=== PATIENT | female | born 1995 | race Caucasian/White ===

== ENCOUNTER 2018-08-17 21:07 | Inpatient (IN) | payer OTHER ==
[~2018-08-17] VITALS: Ht 157.5 cm; Wt 81.6 kg
--- NOTE | 2018-08-17 21:19 | NUR ---
SE RECIBE PTE LA CUAL REFIERE PRESENTAR CONGESTION NASAL, EPISODIOS DE FIEBRE Y MALESTAR GENERAL.
--- NOTE | 2018-08-17 23:39 | NUR ---
SE ORIENTA A PACIENTE SOBRE ORDENES MEDICAS. SE ADMINISTRAN MEDICAMENTOS, CANALIZA PACIENTE Y COLECTAN MUESTRAS DE LABORATORIO ORDENADAS BAJO MEDIDAS ASEPTICAS. PENDIENTE A RESULTADOS DE LABORATORIO PARA RE-EVALUACION MEDICA.
--- NOTE | 2018-08-18 07:05 | NUR ---
PACIENTE ALERTA Y ORIENTADA X3. EN POSICION SENTADA EN CAMA CON BARANDAS ELEVADAS. PACIENTE CON H/L PATENTE Y LAST DE EDEMA Y ERITEMA. PENDIENTE VISITA DE DR. GROVER DAMON. SE MANTIENE BAJO OBSERVACION POR CAMBIOS SIGNIFICATIVOS.
[2018-08-23] MEDS ORDERED: PROVENTIL HFA6.7 GM IH (15:44)
[2018-08-23] MEDS ORDERED: MUCINEX D ER 61 EACH PO (15:44)
== END 2018-08-23 16:46 | disposition home or self-care (01) | DRG 194 ==
LOC: ER 21:07 → EDBD 21:08 → MEDI 08-18 09:46
PROVIDERS: ADMIT Internal Medicine
PROC: 3E0F7GC Introduction of Other Therapeutic Substance into Respiratory Tract, Via Natural or Artificial Opening (ICD-10-PCS; principal; 2018-08-18)
PROC: 4A033R1 Measurement of Arterial Saturation, Peripheral, Percutaneous Approach (ICD-10-PCS; 2018-08-18)
DX: J10.1 Influenza due to other identified influenza virus with other respiratory manifestations (principal); J45.901 Unspecified asthma with (acute) exacerbation